=== PATIENT | female | born 1965 | race Caucasian/White ===

== ENCOUNTER → 2023-12-04 | Outpatient (CLI) | payer BC ==
--- NOTE | 2023-12-05 09:32 | MM ---
Reason for Exam: Screening (asymptomatic). Last mammogram was performed 11 year(s) and 5 month(s) ago. Patient History: Menarche at age 12. First Full-Term at age 29. Postmenopausal. Patient has history of breast feeding. Patient used Hormonal Contraceptives for 2 years. 10/28/2008, Benign Core Biopsy on the right side. Risk Values: Kaylee 5 year model risk: 1.8%. NCI Lifetime model risk: 10.0%. Prior Study Comparison: 10/22/2009 Bilateral Screening Mammogram, [facility]. 06/07/2012 Bilateral Screening Mammogram, [facility]. 06/18/2012 Right Diagnostic Mammogram, [facility]. Tissue Density: There are scattered areas of fibroglandular density. Findings: Analyzed By CAD. There is no suspicious group of microcalcifications or new suspicious mass in either breast. Overall Assessment: Benign, BI-RAD 2 Management: Screening Mammogram of both breasts in 1 year. . Patient should continue monthly self-breast exams. A clinical breast exam by your physician is recommended on an annual basis. This exam should not preclude additional follow-up of suspicious palpable abnormalities. Note on Kaylee scores and lifetime risk: 1. A Kaylee score greater than 3% is considered moderate risk. If this is the case, consider specialist referral to assess eligibility for a risk reducing agent. 2. If overall lifetime risk for the development of breast cancer is 20% or higher, the patient may qualify for future screening with alternating mammogram and breast MRI. [facility], , 12/05/2023 9:29 AM. Electronically signed and approved by: Rashid Costa M.D. Radiologis
== END | disposition home or self-care (01) ==
LOC: RADMAMWWP 10:58
PROVIDERS: ATTEND Obstetrics & Gynecology
DX: Z12.31 Encounter for screening mammogram for malignant neoplasm of breast
CPT/HCPCS: 77063; 77067